=== PATIENT | female | born 1965 | race Asian ===

== ENCOUNTER 2017-02-24 10:25 | Emergency (ER) | payer OTHER ==
[~2017-02-24] VITALS: Ht 160 cm; Wt 53.8 kg
[~2017-02-24 10:25] MED LIST: AMOX1TAB64 PO; CLIN300C93 PO; FERR325T20 PO; GLIM1TAB2 PO; METF500T4 PO; METR500T PO; OXYC-302 PO; ZOLP-413 PO
[2017-02-24] MEDS ORDERED: ATOR20TA9 PO (11:30)
[2017-02-24] MEDS ORDERED: MELA1TAB15 PO (11:32)
[2017-02-24 12:32] LABS: ASPARTATE AMINO TRANSFERASE 12 U/L (15-37); BLOOD UREA NITROGEN 13 mg/dL (7-18)
[2017-02-24 13:01] VITALS: BP 131/63
== END 2017-02-24 13:54 | disposition home or self-care (01) ==
LOC: ED 13:20
DX: J06.9 Acute upper respiratory infection, unspecified (principal); B34.9 Viral infection, unspecified; E11.9 Type 2 diabetes mellitus without complications
CPT/HCPCS: 36415; 74022; 80053; 81003; 82550; 83690; 85025; 99285

== ENCOUNTER 2017-05-26 06:52 | Inpatient (IN) | payer OTHER ==
[~2017-05-26] VITALS: Ht 160 cm; Wt 53.0 kg
[~2017-05-26 06:52] MED LIST changes: +ATOR20TA9 PO; +CLIN300C8 PO; -CLIN300C93 PO; +FERR325T18 PO; -FERR325T20 PO; +MELA1TAB15 PO
[2017-05-26 07:50] LABS: HEMATOCRIT 44.4 % (34.6-47.8); HEMOGLOBIN 15.2 g/dL (11.7-16.4); WHITE BLOOD COUNT 2.9 x10^3/uL (3.4-10)
[2017-05-26 08:01] LABS: BLOOD UREA NITROGEN 8 mg/dL (7-18)
[2017-05-26 08:01] LABS: PATH.CAST-FLAG NOT PRESENT; SPERM-FLAG NOT PRESENT; SRC-FLAG NOT PRESENT; XTAL-FLAG NOT PRESENT; YLC-FLAG NOT PRESENT
[2017-05-26 08:09] LABS: DIFF TOTAL CELLS COUNTED 100 CELL DIFF
[2017-05-26 08:11] LABS: VERIFY COUNTS? YES
[2017-05-26] MEDS ORDERED: CEFTRIAXONE PMX 1GM/50ML 50 ML ONE (08:25)
[2017-05-26] MEDS ORDERED: MORPHINE SULFATE 4 MG/ML, 1ML ONE (08:29)
[2017-05-26] MEDS ORDERED: ONDANSETRON 2MG/ML, 2ML ONE (08:29)
[2017-05-26] MEDS ORDERED: SODIUM CHLORIDE FLUSH 10ML SYR IVF ONE (08:30)
[2017-05-26] MEDS ORDERED: SODIUM CHLORIDE 0.9% 1,000ML IVBOLUS ONE (08:30)
[2017-05-26] MEDS ORDERED: morphine SULFATE 10 MG/ML, 1ML IVPush ONE (08:30)
[2017-05-26] MEDS ORDERED: ONDANSETRON 2MG/ML, 2ML IVPush ONE (08:30)
[2017-05-26] MEDS ORDERED: CEFTRIAXONE PMX 1GM/50ML 50 ML IV ONE (08:30)
[2017-05-26 10:50] VITALS: BP 107/70
[2017-05-26] MEDS ORDERED: morphine SULFATE 10 MG/ML, 1ML IVPush PRN ×2 (13:30→16:00)
[2017-05-26] MEDS: ACETAMINOPHEN 325 MG TABLET PO PRN (14:12)
[2017-05-26 14:45] VITALS: BP 107/77
[2017-05-26] MEDS ORDERED: ENALAPRILAT 1.25 MG/ML, 2ML IVPush PRN (16:00)
[2017-05-26] MEDS ORDERED: hydrALAzine 20 MG/ML, 1ML IVPush PRN (16:00)
[2017-05-26] MEDS ORDERED: DOCUSATE 100 MG CAPSULE PO PRN (16:00)
[2017-05-26] MEDS ORDERED: VANCOMYCIN PER PHARMACY MC PRN (16:00)
[2017-05-26] MEDS ORDERED: BISACODYL 10 MG SUPP PR PRN (16:00)
[2017-05-26] MEDS ORDERED: ACETAMINOPHEN 325 MG TABLET PO PRN (16:00)
[2017-05-26] MEDS ORDERED: POLYETHYLENE GLYCOL 17 GM PACKET PO PRN (16:00)
[2017-05-26] MEDS ORDERED: PHARMACOKINETIC CONSULTATION MC ONE (16:30)
[2017-05-26] MEDS ORDERED: PHARMACOKINETIC MONITORING MC PRN (16:30)
[2017-05-26] MEDS: SODIUM CHLORIDE 0.9% 1,000 ML IV SCH (17:17)
[2017-05-26] MEDS: VANCOMYCIN PMX 1GM/200ML 200 ML IV SCH (17:18)
[2017-05-26] MEDS: OXYcodone IR 5MG TABLET PO PRN ×2 (17:40→21:30)
[2017-05-26 19:32] VITALS: BP 111/65
[2017-05-26] MEDS: ACYCLOVIR 500 MG in SODIUM CHLORIDE 0.9% 100 ML IV SCH (20:07)
[2017-05-26] MEDS: HEPARIN 5,000 UNITS/ML, 1ML SQ SCH (20:08)
[2017-05-26] MEDS: ATORVASTATIN 20 MG TABLET PO SCH ×2 (20:08→20:18)
[2017-05-26] MEDS: INSULIN ASPART 100 UNITS/ML, PEN SQ-INSULIN SCH (20:17)
[2017-05-26 20:29] LABS: GLUCOSE, CSF 71 mg/dL (40-80)
[2017-05-27 01:54] VITALS: BP 111/66
[2017-05-27] MEDS: ACETAMINOPHEN 325 MG TABLET PO PRN ×2 (02:56→09:31)
[2017-05-27] MEDS: ACYCLOVIR 500 MG in SODIUM CHLORIDE 0.9% 100 ML IV SCH ×3 (02:56→17:59)
[2017-05-27 04:40] LABS: HEMATOCRIT 37.1 % (34.6-47.8); HEMOGLOBIN 12.6 g/dL (11.7-16.4)
[2017-05-27 04:48] LABS: BLOOD UREA NITROGEN 5 mg/dL (7-18)
[2017-05-27 04:51] LABS: ASPARTATE AMINO TRANSFERASE 184 U/L (15-37)
[2017-05-27 05:42] LABS: DIFF TOTAL CELLS COUNTED 100 CELL DIFF; WHITE BLOOD COUNT 2.5 x10^3/uL (3.4-10)
[2017-05-27 05:49] LABS: VERIFY COUNTS? YES
[2017-05-27] MEDS: HEPARIN 5,000 UNITS/ML, 1ML SQ SCH ×3 (06:01→20:51)
[2017-05-27] MEDS: SODIUM CHLORIDE 0.9% 1,000 ML IV SCH (06:03)
[2017-05-27 06:55] VITALS: BP 108/65
[2017-05-27] MEDS: INSULIN ASPART 100 UNITS/ML, PEN SQ-INSULIN SCH ×4 (07:00→20:38)
[2017-05-27] MEDS ORDERED: CEFTRIAXONE PMX 2GM/50ML 50 ML IV SCH (08:00)
[2017-05-27] MEDS ORDERED: ATORVASTATIN 20 MG TABLET PO SCH (09:00)
[2017-05-27] MEDS: ONDANSETRON 2MG/ML, 2ML IVPush PRN (09:31)
[2017-05-27] MEDS: VANCOMYCIN PMX 1GM/200ML 200 ML IV SCH (11:26)
[2017-05-27 15:20] VITALS: BP 119/75
[2017-05-27 17:34] LABS: ASPARTATE AMINO TRANSFERASE 189 U/L (15-37); BLOOD UREA NITROGEN 5 mg/dL (7-18)
[2017-05-27 19:35] VITALS: BP 119/62
[2017-05-27] MEDS ORDERED: ZOLPIDEM 5MG TABLET PO SCH (21:00)
[2017-05-28 01:35] VITALS: BP 126/80
[2017-05-28] MEDS: ACYCLOVIR 500 MG in SODIUM CHLORIDE 0.9% 100 ML IV SCH (01:54)
[2017-05-28] MEDS: HEPARIN 5,000 UNITS/ML, 1ML SQ SCH (04:14)
[2017-05-28] MEDS: INSULIN ASPART 100 UNITS/ML, PEN SQ-INSULIN SCH (07:00)
[2017-05-28] MEDS ORDERED: ZOLP5TAB PO (07:57)
[2017-05-28] MEDS ORDERED: ONDA4TAB7 PO (07:57)
[2017-05-28 09:17] VITALS: BP 115/77
[2017-05-28] MEDS: ONDANSETRON 2MG/ML, 2ML IVPush PRN (11:10)
[2017-05-28] MEDS: ACETAMINOPHEN 325 MG TABLET PO PRN (11:29)
[2017-05-29 09:56] LABS: WESTNILEVIRUSIGG SEE PRINTED REPORT; WESTNILEVIRUSIGM SEE PRINTED REPORT
[2017-05-30 09:07] LABS: CRYPTOCOCCUS ANTIGEN CSF Negative (Negative); MANDATED REFLEX TO CULTURE Not Indicated (.)
== END 2017-05-28 11:35 | disposition home or self-care (01) | DRG 872 ==
LOC: ED 07:20 → EDIP 08:39 → 3NW 10:23
PROVIDERS: ADMIT Hospitalist; ATTEND Hospitalist
PROC: 009U3ZX Drainage of Spinal Canal, Percutaneous Approach, Diagnostic (ICD-10-PCS; principal; 2017-05-26)
PROC: B01B1ZZ Fluoroscopy of Spinal Cord using Low Osmolar Contrast (ICD-10-PCS; 2017-05-26)
DX: A41.89 Other specified sepsis (principal); D69.6 Thrombocytopenia, unspecified; N39.0 Urinary tract infection, site not specified; B34.9 Viral infection, unspecified; E11.9 Type 2 diabetes mellitus without complications; E78.5 Hyperlipidemia, unspecified; R79.89 Other specified abnormal findings of blood chemistry; Z80.3 Family history of malignant neoplasm of breast; Z82.49 Family history of ischemic heart disease and other diseases of the circulatory system; Z83.3 Family history of diabetes mellitus; Z90.721 Acquired absence of ovaries, unilateral
CPT/HCPCS: 36415; 62270; 71020; 76700; 80048; 80053; 80061; 81001; 82040; 82945; 82962; 82977; 83036; 83605; 83735; 84100; 84145; 84157; 84439; 84443; 85025; 85610; 86651; 86652; 86653; 86654; 86704; 86706; 86708; 86788; 86789; 86803; 87040; 87070; 87086; 87205; 87252; 87255; 87340; 87899; 89051; 96365; 96375; J0133; J0696; J1644; J2405; J3370; J2270; J7030

== ENCOUNTER → 2017-07-03 | Outpatient (CLI) | payer OTHER ==
[~2017-07-03] MED LIST changes: +ONDA4TAB7 PO; +ZOLP5TAB PO
== END | disposition home or self-care (01) ==
LOC: CFH 10:16
PROVIDERS: ATTEND Internal Medicine
DX: Z12.31 Encounter for screening mammogram for malignant neoplasm of breast (principal)
CPT/HCPCS: G0202

== ENCOUNTER 2021-05-01 11:45 | Outpatient (CLI) | payer OTHER ==
[~2021-05-01 11:45] MED LIST changes: +ATOR20TA37 PO; -ATOR20TA9 PO; -CLIN300C8 PO; +CLIN300C9 PO; -GLIM1TAB2 PO; +GLIM1TAB7 PO; +METF500T17 PO; -METF500T4 PO; -OXYC-302 PO; +OXYC1TAB14 PO
[2021-05-01 12:19] LABS: MEAN CORPUSCULAR HEMOGLOBIN 31.1 pg (27.0-34.8); MEAN CORPUSCULAR HGB CONC 33.9 g/dL (32.4-35.8); PLATELET COUNT 339 x10^3/uL (130-400); RED BLOOD COUNT 4.72 x10^6/uL (3.82-5.3); RED CELL DISTRIBUTION WIDTH 12.9 % (9.6-15.2)
[2021-05-01 12:28] LABS: ALBUMIN 3.8 g/dL (3.4-5.0); ANION GAP 7 mmol/L (5-15); CHLORIDE 108 mmol/L (98-107)
[2021-05-01 12:37] LABS: ALANINE AMINOTRANSFERASE 31 U/L (12-78); ALKALINE PHOSPHATASE 70 U/L (45-117); BILIRUBIN,TOTAL 0.6 mg/dL (0.2-1.0); CHOL/HDL RATIO 3.6; CHOLESTEROL, TOTAL 174 mg/dL (140-239); CREATININE 0.71 mg/dL (0.55-1.02); FREE T4 (FREE THYROXINE) 1.08 ng/dL (0.76-1.46); HDL CHOL % 28 % (28-40); HDL CHOLESTEROL (DIRECT) 49 mg/dL (40-60); LDL CHOLESTEROL,CALCULATED 79 mg/dL (54-169); LDL/HDL RATIO 1.6 (0.5-3.0); TOTAL PROTEIN 7.9 g/dL (6.4-8.2); TRIGLYCERIDES 232 mg/dL (50-200); VLDL CHOLESTEROL 46 mg/dL (0-25)
== END 2021-05-01 23:59 | disposition home or self-care (01) ==
LOC: LAB 11:45
PROVIDERS: ATTEND Obstetrics & Gynecology
DX: R53.83 Other fatigue (principal)
CPT/HCPCS: 36415; 80053; 80061; 82306; 83036; 84439; 84443; 85027

== ENCOUNTER 2021-05-09 13:42 | Outpatient (CLI) | payer OTHER ==
[~2021-05-09 13:42] MED LIST changes: +OXYC1TAB12 PO; -OXYC1TAB14 PO
== END 2021-05-09 23:59 | disposition home or self-care (01) ==
LOC: CFH 13:42
PROVIDERS: ATTEND Obstetrics & Gynecology
DX: Z12.31 Encounter for screening mammogram for malignant neoplasm of breast (principal)
CPT/HCPCS: 77063; 77067